=== PATIENT | male | born 1985 | race Caucasian/White ===

== ENCOUNTER 2023-05-30 08:55 | Emergency (ER) | payer BC, OTHER ==
[~2023-05-30] VITALS: Ht 185.4 cm; Wt 93.6 kg
[2023-05-30 10:26] VITALS: BP 134/88; PULSE 72; RESP 16; O2SAT 99
[2023-05-30] MEDS ORDERED: DEC4T PO (11:30)
[2023-05-30 11:39] VITALS: TEMP 98.7
== END 2023-05-30 11:41 | disposition home or self-care (01) ==
LOC: ER 08:55
DX: L23.7 Allergic contact dermatitis due to plants, except food (principal); Z79.899 Other long term (current) drug therapy
CPT/HCPCS: 99283